=== PATIENT | male | born 1950 | race Caucasian/White ===

== ENCOUNTER 2017-04-26 11:27 | Day surgery (SDC) | payer MEDICARE, OTHER ==
[~2017-04-26] VITALS: Ht 193 cm; Wt 79.0 kg
[~2017-04-26 11:27] MED LIST: AMIN30LI PO; FENT1PAT8 TD; FENT50AM NS; HYDR-762 PO; INSU100V23 SC; IPRA3AMP INHALATION; LANT3I SC; OMEP40CA6 PO
[2017-04-26] MEDS ORDERED: LIPITOR PO (12:26)
[2017-04-26] MEDS ORDERED: FAMO-96 PO (12:26)
[2017-04-26] MEDS ORDERED: BISA-57 PO (12:26)
[2017-04-26] MEDS ORDERED: DOCU-144 PO (12:26)
[2017-04-26 12:40] VITALS: BP 113/65; PULSE 82; RESP 20
[2017-04-26 12:45] VITALS: Ht 193 cm; Wt 79.0 kg
--- NOTE | 2017-04-26 12:55 | OPPN ---
Date/Time of Note Date/Time of Note DATE: 04/26/17 TIME: 12:53 Operative Report Preoperative Diagnosis History of dysphagia and malfunctioning gastrostomy tube Postoperative Diagnosis Successful removal of the gastrostomy tube Operation/Procedure Performed Successful removal of the gastrostomy tube Estimated blood loss: none Complications: None BEVERLY COLLINS MD Apr 26, 2017 12:55
[2017-04-26 13:00] VITALS: BP 117/61; PULSE 89; RESP 20
[2017-04-26] MEDS ORDERED: BASAGLAR KWIKPEN SUBCUTANE (13:24)
--- NOTE | 2017-04-27 06:19 | GILP ---
DATE OF PROCEDURE: 04/26/2017 PROCEDURE PERFORMED: Gastrostomy tube removal. SURGEON: Rashaad Baird MD PREOPERATIVE DIAGNOSES: Dysphagia and malfunctioning gastrostomy tube. POSTOPERATIVE DIAGNOSIS: Successful removal of the gastrostomy tube. INDICATION: Mr. Rich Chamorro is a 66-year-old male patient who had throat cancer with dysphagia. He had gastrostomy tube for feeding. His condition improved and he was able to the eat. So, the patient was scheduled for removal of the gastrostomy tube. DESCRIPTION OF PROCEDURE: The malfunctioning tube was pulled out of the patient's stomach. The gastrostomy site was clean, and dressing was applied. The patient tolerated the procedure very well. There was no complication from the procedure. At the end of procedure, his vital signs are stable. He was discharged back home in stable condition. IMPRESSION: Successful removal of the gastrostomy tube. PLAN: Resume oral feeding. Dictated By: MD OSVALDO Nascimento/maría/farhad /Document#: [id number]
== END 2017-04-30 08:16 | disposition home or self-care (01) ==
LOC: GIL 11:27
PROVIDERS: ATTEND Internal Medicine Gastroenterology
DX: K94.23 Gastrostomy malfunction (principal); Y84.8 Other medical procedures as the cause of abnormal reaction of the patient, or of later complication, without mention of misadventure at the time of the procedure; R13.10 Dysphagia, unspecified; E11.9 Type 2 diabetes mellitus without complications
CPT/HCPCS: 82962